=== PATIENT | male | born 2000 | race Hispanic/Latino ===

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

== ENCOUNTER 2022-09-02 14:18 | Outpatient (CLI) | payer BC | END 2022-09-02 14:19 | disposition home or self-care (01) | LOC: BICCT 14:18 | PROVIDERS: ATTEND Specialist | DX: J32.8 Other chronic sinusitis (principal); J34.1 Cyst and mucocele of nose and nasal sinus; J34.89 Other specified disorders of nose and nasal sinuses; J34.2 Deviated nasal septum ==

== ENCOUNTER 2022-10-22 06:19 | Day surgery (SDC) | payer BC ==
[2022-10-20 16:08] VITALS: BMI 29.2
[2022-10-22] MEDS ORDERED: Dexmedetomidine 200 MCG/2 ML VIAL ONE (06:48)
[2022-10-22] MEDS ORDERED: Fentanyl 250 MCG/5 ML VIAL ONE (06:48)
[2022-10-22] MEDS ORDERED: Oxymetazoline HCl 0.05% (30 ML BOT) ONE ×2 (07:25→08:13)
[2022-10-22] MEDS ORDERED: EPINEPHrine 1 MG/ML AMP ONE (08:13)
[2022-10-22] MEDS ORDERED: Lidocaine 1% (PF) 30 ML VIAL ONE (08:13)
[2022-10-22] MEDS ORDERED: Dexamethasone 20 MG/5 ML VIAL ONE (08:30)
[2022-10-22] MEDS ORDERED: ePHEDrine 50 MG/ML VIAL ONE (08:30)
[2022-10-22] MEDS ORDERED: PROPOFOL 200 MG/20 ML VIAL ONE (08:30)
[2022-10-22] MEDS ORDERED: Ondansetron PF 4 MG/2 ML Vial ONE (08:30)
[2022-10-22] MEDS ORDERED: Rocuronium Bromide 10 MG/ML (10ML VIAL) ONE (08:30)
== END 2022-10-22 11:35 | disposition home or self-care (01) ==
LOC: SDC 06:19
PROVIDERS: ATTEND Specialist
PROC: 09SM0ZZ Reposition Nasal Septum, Open Approach (ICD-10-PCS; principal; 2022-10-22)
PROC: 09SL8ZZ Reposition Nasal Turbinate, Via Natural or Artificial Opening Endoscopic (ICD-10-PCS; principal; 2022-10-22)
DX: J34.2 Deviated nasal septum (principal); J34.3 Hypertrophy of nasal turbinates; J30.1 Allergic rhinitis due to pollen; J30.81 Allergic rhinitis due to animal (cat) (dog) hair and dander; Z86.16 Personal history of COVID-19
CPT/HCPCS: J0171; J1100; J2001; J2405; J2704; J3010; J3490